=== PATIENT | female | born 1945 | race Caucasian/White ===

== ENCOUNTER → 2016-07-28 | Outpatient (CLI) | payer MEDICARE, BC | LOC: MC.RAD 13:52 | DX: Z12.31 Encounter for screening mammogram for malignant neoplasm of breast (principal) ==

== ENCOUNTER → 2017-09-04 | Outpatient (CLI) | payer MEDICARE, BC | LOC: MC.RAD 08:55 | DX: Z12.31 Encounter for screening mammogram for malignant neoplasm of breast (principal) ==

== ENCOUNTER → 2018-04-29 | Outpatient (CLI) | payer MEDICARE, BC | LOC: COL.RAD 13:53 | DX: I10 Essential (primary) hypertension (principal); Z90.49 Acquired absence of other specified parts of digestive tract; Z90.89 Acquired absence of other organs; Z90.710 Acquired absence of both cervix and uterus | CPT/HCPCS: Q9967 ==

== ENCOUNTER → 2018-09-17 | Outpatient (CLI) | payer MEDICARE, BC | LOC: MC.RAD 09:45 | DX: Z12.31 Encounter for screening mammogram for malignant neoplasm of breast (principal); N63.11 Unspecified lump in the right breast, upper outer quadrant ==

== ENCOUNTER → 2018-09-24 | Outpatient (CLI) | payer MEDICARE, BC | LOC: MC.RAD 08:51 | DX: N60.01 Solitary cyst of right breast (principal) ==

== ENCOUNTER → 2019-04-14 | Outpatient (CLI) | payer MEDICARE, BC | LOC: COL.VAS 10:58 | DX: I48.91 Unspecified atrial fibrillation (principal); I08.1 Rheumatic disorders of both mitral and tricuspid valves ==

== ENCOUNTER → 2019-05-02 | Outpatient (CLI) | payer MEDICARE, BC ==
[~2019-05-02] VITALS: Ht 175.3 cm; Wt 116.0 kg
[~2019-05-02] MED LIST: DIOVAN 160MG160 MG PO; ELIQUIS 2.5 PO; FOLIC ACID 11 MG/TA1 PO; HCTZ 25MG TAB25 MG PO; METHOTREXA2.5 MG/TAB PO; NORVASC 10MG10 MG PO; SYNTHROID0.088 MG/T PO; TAMBOCOR50 MG PO; ZOCOR 20MG20 MG PO
[2019-05-02 11:11] VITALS: BP 141/75; PULSE 99
[2019-05-02 12:00] VITALS: BP 170/78; PULSE 100
[2019-05-02 12:04] VITALS: BP 164/84; PULSE 121
[2019-05-02 12:05] VITALS: BP 151/85; PULSE 115
[2019-05-02 12:06] VITALS: BP 154/87; PULSE 110
== END ==
LOC: COL.CARD 10:38
DX: I48.91 Unspecified atrial fibrillation (principal)
CPT/HCPCS: A9500

== ENCOUNTER 2019-06-04 12:21 | Inpatient (IN) | payer MEDICARE, BC ==
[~2019-06-04] VITALS: Ht 175.3 cm; Wt 118.2 kg
[2019-06-04] MEDS ORDERED: TOPROL XL 25MG25 MG PO (14:57)
[2019-06-04 15:21] VITALS: BP 114/71; PULSE 86; TEMP 98.3
[2019-06-04 15:22] VITALS: BP 114/71; PULSE 86; TEMP 98.3
[2019-06-04 15:48] LABS: CALCIUM 9.2 mg/dL (8.4-10.2); CREATININE, serum 0.94 (0.52-1.25); MAGNESIUM 2.2 mg/dL (1.6-2.3); POTASSIUM 4.2 mmol/L (3.4-5.0)
--- NOTE | 2019-06-04 18:55 | NUR ---
Pt arrived to floor and room 308 around 1330 this afternoon. Pt is A&O, independent in room. 22G LFA IV started w/o complications, NS @30ml/hr running. LS clear, heart RRR, BSx4. Pt on room air, breathing is even and unlabored. Verbal & written orders received from Dr. Mcduffie. Pt to have EKG prior to sotalol initiation, labs ordered, med rec, allergies, admission completed. POC discussed w/ pt who verbalized understanding. No further needs.
[2019-06-04 19:26] VITALS: BP 137/76; PULSE 85; TEMP 98.5
[2019-06-05 00:14] VITALS: BP 107/61; PULSE 58; TEMP 98.4
--- NOTE | 2019-06-05 02:15 | NUR ---
EKG DONE AND COPY PUT IN CHART AT 1930 EKG IS NOT SHOWING UP ON [facility] AT THIS TIME
--- NOTE | 2019-06-05 03:15 | NUR ---
patient has rested throughout the night reporting no pain. patient is indepdent in room and takes herself to the restroom. this will be sotalol day 2 for patient. awaiting for morning EKG to verify the QTc. will report off to day shift upon their arrival.
[2019-06-05 04:24] VITALS: BP 127/66; PULSE 71; TEMP 97.6
[2019-06-05 07:29] VITALS: BP 132/67; PULSE 65; TEMP 98
--- NOTE | 2019-06-05 08:12 | NUR ---
Pt recieved METHOTREXATE here last night. Please use double gloves if any contact with urine until 06/06 and with stool until 06/10. At this point, a gown should be worn with the above contact. As long as pt is managing her own hygiene, no gown is needed.
--- NOTE | 2019-06-05 10:55 | NUR ---
FIDEL met with the patient to discuss discharge plan. The patient lives in [place] with her , Jeff (ph#[phone]). She reports independence with ADLs and does not have any DME. The patient's PCP is Dr. Fifi Mcduffie and she receives her medications at [facility] in [place]. She reports no difficulties obtaining her meds. The patient does not have advanced directives, but she states that she is planning on going to a survey project manager to complete them. The patient plans to return home with her upon discharge. No additional needs at this time.
[2019-06-05 11:23] VITALS: BP 125/72; PULSE 67; TEMP 98.3
--- NOTE | 2019-06-05 11:49 | NUR ---
First visit from the dynamics ax solution architect. No needs right now.
[2019-06-05 16:06] VITALS: BP 121/72; PULSE 71; TEMP 98.7
--- NOTE | 2019-06-05 19:38 | NUR ---
REPORT GIVEN TO HARI BROWN. NO CONCERNS
[2019-06-05 20:45] VITALS: BP 105/63; PULSE 77; TEMP 98.6
--- NOTE | 2019-06-05 20:45 | NUR ---
ASSSESSMENT COMPLETE. UP IN CHAIR, WATCHING TV. DENIES NEEDS AT THIS TIME.
[2019-06-06] VITALS (10 sets, daily range): BP systolic 104–126; BP diastolic 54–87; PULSE 51–70; TEMP 97.5–98.4
--- NOTE | 2019-06-06 05:51 | NUR ---
EKG DONE AT 0521 HOWEVER MACHINE TIME IS NOT CORRECT IS AN HOUR BEHIND
[2019-06-06 06:31] LABS: BASO # 0.1 (0.0-0.2); BASO % 0.9 % (0.0-2.0); EOS # 0.3 (0.0-0.7); EOS % 3.6 % (0-4.0); GRAN # 4.9 (1.4-6.5); GRAN % 65.4 % (42.2-75.2); HEMATOCRIT 38.3 % (37.0-47.0); HEMOGLOBIN 12.3 g/dl (12.5-16.0); LYMPH # 1.5 (1.2-3.4); LYMPH % 20.1 % (20.0-51.0); MEAN CELL VOLUME 97 fl (80.0-100.0); MEAN CORPUSCULAR HEMOGLOBIN 31 pg (27.0-31.0); MEAN CORPUSCULAR HGB CONC 32 g/dl (33.0-37.0); MEAN PLATELET VOLUME 10.5 fl (7.4-10.4); MONO # 0.7 (0.1-0.6); MONO % 9.6 % (1.7-9.3); PLATELET COUNT 241 K/mm3 (130-400); RED BLOOD COUNT 3.94 M/mm3 (4.10-5.30)
[2019-06-06 06:46] LABS: CREATININE, serum 0.92 (0.52-1.25); POTASSIUM 4.1 mmol/L (3.4-5.0)
--- NOTE | 2019-06-06 07:20 | NUR ---
Report rcvd from HARI Blanchard.
--- NOTE | 2019-06-06 13:01 | NUR ---
PT STATES NO CURRENT CONCERNS. DR. GREEN DID COME TALK TO THE PATIENT, AND PROVIDED BP STAYS WNL AND PT HEART RATE REMAINS FINE, HE WILL INCREASE SOTALOL AND THEN D/C THIS EVENING.
--- NOTE | 2019-06-06 19:56 | NUR ---
Pt had uneventful day. Awaiting D/C per Dr. Mcduffie finalization. report given to HARI Uribe.
--- NOTE | 2019-06-06 21:10 | NUR ---
Patient completed discharge paperwork with this nurse at approximately 2019. Voiced no questions, needs, or concerns. Given night dose of Sotalol as requested by MD. IV to right hand discontinued. Walked with patient to private vehicle at approximately 2109.
== END 2019-06-06 21:10 | disposition home or self-care (01) | DRG 310 ==
LOC: MEDICAL 12:21
PROVIDERS: ADMIT Family Medicine
PROC: 5A2204Z Restoration of Cardiac Rhythm, Single (ICD-10-PCS; principal; 2019-06-04)
DX: I48.19 Other persistent atrial fibrillation (principal); E78.00 Pure hypercholesterolemia, unspecified; E11.9 Type 2 diabetes mellitus without complications; M06.9 Rheumatoid arthritis, unspecified; E03.9 Hypothyroidism, unspecified; I10 Essential (primary) hypertension; I25.10 Atherosclerotic heart disease of native coronary artery without angina pectoris
CPT/HCPCS: J1940; J2704; J7030; J8610

== ENCOUNTER → 2019-09-26 | Outpatient (CLI) | payer MEDICARE, BC ==
[~2019-09-26] MED LIST changes: +TOPROL XL 25MG25 MG PO
== END ==
LOC: MC.RAD 13:45
DX: Z12.31 Encounter for screening mammogram for malignant neoplasm of breast (principal)

== ENCOUNTER → 2020-10-28 | Outpatient (CLI) | payer MEDICARE, BC | LOC: MC.RAD 11:23 | DX: Z12.31 Encounter for screening mammogram for malignant neoplasm of breast (principal) ==

== ENCOUNTER → 2021-10-31 | Outpatient (CLI) | payer MEDICARE, BC | LOC: MC.RAD 10:32 | DX: Z12.31 Encounter for screening mammogram for malignant neoplasm of breast (principal) ==